=== PATIENT | female | born 1990 | race Two or more races ===

== ENCOUNTER 2024-08-25 11:02 | Emergency (ER) | payer BC, MEDICAID, SELFPAY ==
[2024-08-25 11:19] VITALS: BP 131/82; PULSE 121; RESP 18; TEMP 37.1; O2SAT 98; BMI 43.7
--- NOTE | 2024-08-25 11:25 | EKG_ITS ---
[facility] Test Date: 2024-08-25 Pat Name: MARTIN FOSTER Department: Room: - Gender: Female Program Counselor: : 1990 Requested By: Raúl Crespo (MICHELE) Order Number: [id number] Reading MD: Raúl Crespo (MICHELE) Measurements Intervals [place] Rate: 111 P: 44 HI: 104 QRS: 38 QRSD: 102 T: 53 QT: 335 QTc: 456 Interpretive Statements SINUS TACHYCARDIA WITH SHORT HI INTERVAL ABNORMAL RHYTHM ECG No previous ECG available for comparison /store/S0/[id number].pdf
--- NOTE | 2024-08-25 11:25 | XR_ITS ---
Examination: PA lateral chest 2 views TECHNIQUE: Upright PA lateral chest 2 views Exam date and time: August 25, 2024 11:41 AM INDICATIONS: Left-sided chest pain sweats vomiting diarrhea today FINDINGS: Normal heart size Lungs are clear. Intact osseous structures IMPRESSION: No active disease
--- NOTE | 2024-08-25 11:26 | PD.EDRME ---
Rapid Medical Screening Exam [facility] Arrival date/time: 08/25/24 11:02 34-year-old female presents to the emergency department complaints of nausea vomiting and diarrhea as well as left-sided chest pain Chief Complaint: Nausea/Vomiting/Diarrhea Vital signs: Vital Signs Temperature 98.7 F 08/25/24 11:19 Pulse Rate 121 H 08/25/24 11:19 Respiratory Rate 18 08/25/24 11:19 Blood Pressure 131/82 H 08/25/24 11:19 Pulse Oximetry (%) 98 08/25/24 11:19 Oxygen Delivery Method Room Air 08/25/24 11:19
[2024-08-25 12:04] LABS: Basophils % (Auto) 0 % (0-2.5); Eosinophils % (Auto) 0 % (0-10); Hematocrit 40.4 % (36.0-46.0); Hemoglobin 13.3 g/dL (12.0-16.0); Immature Granulocytes % (Auto) 0 % (0-0); Immature Granulocytes Auto 0.04 Thou/mm3 (0.00-0.00); Lymphocytes # (Auto) 2.4 Thou/mm3 (1.0-4.8); Lymphocytes % (Auto) 19 % (10-50); Mean Corpuscular HGB Conc 32.9 g/dl (31.0-37.0); Mean Corpuscular Hemoglobin 26.1 pg (25.0-35.0); Mean Corpuscular Volume 79 fL (80-100); Monocytes # (Auto) 0.6 Thou/mm3 (0.0-0.8); Monocytes % (Auto) 5 % (0-12); Neutrophils # (Auto) 9.4 Thou/mm3 (1.8-7.7); Neutrophils % (Auto) 75 % (37-80); Nucleated Red Blood Cell % 0 /100 WBC (0); Platelet Count 347 Thou/mm3 (140-440); RDW Standard Deviation 43.8 fL (36.4-46.3); White Blood Count 12.5 Thou/mm3 (3.6-11.0)
[2024-08-25 12:16] LABS: Collection Type, Urine Clean Catch
--- NOTE | 2024-08-25 12:32 | PD.EDNV ---
Nausea/Vomit./Diarrhea-RME/HPI General Chief complaint: Nausea/Vomiting/Diarrhea Stated complaint: SWEATS, VOMITING, DIARRHEA, SHARP CP Time Seen by Provider: 08/25/24 12:32 Arrival date/time: 08/25/24 11:02 34 year old female present to emergency room with c/o of nausea,vomiting, diarrhea and chest pain for a few days. LOCATION: Chest/abdominal SEVERITY: Symptoms are described as being severe with limitations on activities of daily living CONTEXT: The patient is unable to identify any inciting events. DURATION/TIMING: The symptoms started approximately 2 days ASSOCIATED SYMPTOMS: The patient is unable to identify any other associated symptoms. MODIFYING FACTORS: The patient is unable to identify any alleviating or aggravating symptoms. PERTINENT ROS: no fevers, no cough, no pleuritic pain, no ripping or tearing sensations, denies any lower extremity edema and no unilateral swelling, no shortness of breath no dizziness/headache no rash no loc/syncope episode no abd/back pain no dsyuria,urgency,frequency REVIEW OF SYSTEMS: See History of Present Illness - with the exception of those mentioned in the history of present illness, all other systems reviewed and reported as negative GENERAL: In general the patient is awake, interactive, in an emergency department gurney. HEAD/EYES/EARS/NOSE/THROAT: normo-cephalic, atraumatic, mucus membranes are moist, anicteric, palpebral conjunctiva is pink, trachea is midline. CARDIOVASCULAR: regular rate and regular rhythm, no murmurs, heart sounds are not distant, strong pulses in all four extremities that are equal and symmetric bilateral upper and lower extremities, normal capillary refill. CHEST/PULMONARY: normal chest rise and fall, good air movement, clear to auscultation bilaterally, normal inspiratory to expiratory ratios without evidence of respiratory distress. NECK: No midline/Paraspinal tenderness, no step off ROM/Strenght intact No Kernig and bruzinski sign. No trauma ABDOMEN: soft, not tender, no masses appreciated BACK: normal range of motion without pain. NEUROLOGICAL: cranio-facial features are symmetric, moves all four extremities equally without obvious limitations or weakness. EXTREMITY: no tenderness to palpation over the long bones or large joints of the bilateral upper and lower extremities, no joint swelling, no joint erythema, no signs of trauma, no unilateral leg swelling and no peripheral edema. SKIN: warm, dry, well-perfused, no jaundice, no rash, no telangiectasias or petechia. PSYCH: calm, cooperative, no evidence of psychosis or agitation RME / HPI RME / HPI Narrative: 08/25/24 11:02 34-year-old female presents to the emergency department complaints of nausea vomiting and diarrhea as well as left-sided chest pain Related Data Home Medications ?Medication ?Instructions ?Recorded ?Confirmed paroxetine HCl 10 mg tablet (Paxil) 10 mg PO QDAY 06/03/18 06/03/18 Previous Rx's ?Medication ?Instructions ?Recorded docusate sodium 100 mg capsule 100 mg PO BID #60 caps 06/07/18 (Colace) hydrocodone 5 mg-acetaminophen 325 1 tab PO [id number] PRN pain #20 tabs 06/07/18 mg tablet (Langeloth) ibuprofen 800 mg tablet 800 mg PO TID PRN pain #30 tabs 10/19/21 ondansetron 4 mg disintegrating 4 mg PO Q8H PRN nausea and 08/25/24 tablet vomiting #20 tabs oseltamivir 75 mg capsule (Tamiflu) 75 mg PO BID 5 days #10 caps 08/25/24 Allergies Allergy/AdvReac Type Severity Reaction Status Date / Time amoxicillin Allergy Intermediate Hives Verified 08/25/24 11:04 Penicillins Allergy Unknown Verified 08/25/24 11:04 Course Course Course Narrative: Patient presenting with influenza like symptoms.? Obtained influenza A/B screen, which revealed positive influenza.? The following were considered in the patient's differential diagnosis but was not deemed to be consistent with patient's history of present illness and/or physical examination; meningitis, pharyngitis, otitis media, pneumonia, urinary tract infection, peritonsillar abscess, retropharyngeal abscess.? As patient does not present with any signs/symptoms of pneumonia or other complications, basic labs, cxr, wnl, at this time. Educated patient on diagnosis and natural course of influenza.? Supportive care and preventive measures were discussed.? Continue fluid hydration. Follow up with primary physician in 3-5 days if symptoms continue or new problems arise. Return if having persistent high fever, altered mental status, shortness of breath, uncontrolled vomiting, or other concerns.? ? Impression:?? Influenza Plan:? Prescribed influenza zofran? Advised patient on support therapies, including rest, advancement of fluids as tolerated, thorough handwashing w/ soap and H2O, taking OTC ibuprofen or acetaminophen as directed, OTC expectorant/antitussive/decongestants as directed. Advised patient to refrain from visiting work, school, or daycares or visiting women, elderly, or those w/ chronic illnesses. Advised patient to return with new or worsening symptoms. Quality Measures none Orders Category Date Time Status Bedside Influenza A&B Antigen Test NOW Care 08/25/24 11:26 Completed EKG (ED ONLY) *Do not use* NOW Care 08/25/24 11:25 Completed EKG (ED Only) Stat Exams 08/25/24 11:25 Draft XR chest 2V Stat Exams 08/25/24 11:25 Completed CBC Stat Lab 08/25/24 11:48 Completed Comprehensive Metabolic Panel Stat Lab 08/25/24 11:48 Completed HCG Qualitative,Urine Stat Lab 08/25/24 12:04 Completed Troponin I Stat Lab 08/25/24 11:48 Completed UA, C/S IF [Urinalysis, C/S if Indicated] Stat Lab 08/25/24 12:04 Completed Urine Culture Stat Lab 08/25/24 12:04 Received Oseltamivir [Tamiflu] Med 08/25/24 13:35 Once 75 mg PO X1 ONE Reevaluation(s) Reevaluation #2: pt is feeling better and comfortable to go home. Vital Signs Vital signs: Vital Signs Temperature 98.7 F 08/25/24 11:19 Pulse Rate 121 H 08/25/24 11:19 Respiratory Rate 18 08/25/24 11:19 Blood Pressure 131/82 H 08/25/24 11:19 Pulse Oximetry (%) 98 08/25/24 11:19 Oxygen Delivery Method Room Air 08/25/24 11:19 Nausea/Vomiting/Diarrhea Patient data External records reviewed:: [facility] previous records Clinical information provided by:: patient Social determinants that could affect healthcare access:: none Patient has the following chronic illnesses:: n/a How is presenting disease/condition affected by chronic disease/condition?: no chronic disease Evaluation data The following diagnostics were reviewed and interpreted by me:: lab results, radiology exam(s) and EKG tracing(s) Lab and/or radiology exams considered but not ordered:: n/a Interpretation Summary: + Flu a /b Medications / Prescriptions Medications / Prescriptions considered but not ordered:: n/a Medication administrations:: Medication Administration History Oseltamivir Phosphate (Oseltamivir 75 Mg Capsule) 75 mg PO X1 ONE Stop: 08/25/24 13:36 n/a Consultations Consultation(s) initiated? (list below): No Diagnosis Nausea Differential Diagnosis: traveler's diarrhea, gastroenteritis, dehydration and other (UTI, dka, influenza a/b ) Most likely diagnosis given after review of the tests above:: influenza Admission Indicated Admission indicated?: not indicated Admission Request Was there a request for admission?: No Disposition Plan Disposition Plan: Discharge Discharge Attestation Discharge Attestation: The patient and all family members were given an opportunity to ask questions and understood the discharge instructions. Discharge instructions specifically effects, indications for sooner follow up or return to the emergency department, and the expected course of current diagnosis. Patient condition: Stable Discharge Plan Plan Patient Disposition: HOME (Self Care) Health Concerns: Follow with PMD as directed Take tylenol or motrin as need Return to ED if sx worsen Prescriptions/Referrals Prescriptions/Med Rec: New oseltamivir [Tamiflu] 75 mg capsule 75 mg PO BID 5 Days Qty: 10 0RF ondansetron 4 mg tablet,disintegrating 4 mg PO Q8H PRN (Reason: nausea and vomiting) Qty: 20 0RF No Action paroxetine HCl [Paxil] 10 mg Tablet 10 mg PO QDAY hydrocodone-acetaminophen [Langeloth] 5-325 mg tablet 1 tab PO [id number] MDD 4 PRN (Reason: pain) Qty: 20 0RF docusate sodium [Colace] 100 mg capsule 100 mg PO BID Qty: 60 0RF ibuprofen 800 mg tablet 800 mg PO TID PRN (Reason: pain) Qty: 30 0RF Referrals: No Primary/Family,Physician [Primary Care Provider] - In 1 week Problem List Clinical Impression: Influenza Patient/Caregiver Discharge Instructions Education Materials: ED Influenza (Adult) Print Language: Mongolian Stand Alone Forms: [facility] Award Info., Patient Portal Info Letter
[2024-08-25 12:36] LABS: HCG Qualitative,Urine Negative
[2024-08-25 12:37] LABS: Alanine Aminotransferase 26 U/L (10-49); Albumin, Serum 4.2 gm/dL (3.5-5.0); Albumin/Globulin Ratio 1.2 (1.2-2.2); Alkaline Phosphatase 70 U/L (46-116); Anion Gap 8 (7-16); Aspartate Amino Transferase 25 U/L (0-34); BUN/Creatinine Ratio 9 Ratio (12-20); Bilirubin,Total 0.6 mg/dL (0.3-1.2); Blood Urea Nitrogen 9 mg/dL (9-23); Calcium 9.4 mg/dL (8.3-10.6); Calcium (Corrected) 9.4 mg/dL (8.5-10.1); Chloride 105 mMol/L (98-107); Estimated Creatinine Clearance 93.6 mL/min (>60); Globulin 3.5 gm/dL (2.3-3.5); Glucose 116 mg/dL (74-106); Osmolality,Calculated 275 (275-295); Potassium 3.6 mMol/L (3.4-5.1); Sodium 138 mMol/L (136-145); Total Protein 7.7 gm/dL (5.7-8.2); Troponin I < 0.002 ng/mL (0.0-0.045); eGFR > 60 See Note
[2024-08-25 12:39] LABS: Bacteria,Urine Rare; Bilirubin,Urine Negative (Negative); Blood,Urine 1+ (Negative); Color,Urine Yellow (Lt Yel-Yel); Glucose, Urine Negative (Negative); Ketones,Urine Negative (Negative); Leukocyte Esterase,Urine Positive (Negative); Nitrite,Urine Negative (Negative); Protein,Urine Trace (Neg - Trace); RBC,Urine 5 /hpf (0-3); Squamous Epithelial Cell,Urine 8 /hpf (0-5); Urobilinogen,Urine Negative mg/dL (0.0-1.0); WBC,Urine 19 /hpf (0-5)
[2024-08-25 12:40] LABS: Clarity,Urine Hazy (Clear/Hazy); Culture Indicated,Urine Yes
[2024-08-25] MEDS: OSELTAMIVIR 75 MG CAPSULE PO (13:47)
== END 2024-08-25 13:49 | disposition home or self-care (01) ==
PROVIDERS: Nurse Practitioner Primary Care; Emergency Provider Emergency Medicine
DX: J10.1 Influenza due to other identified influenza virus with other respiratory manifestations (principal)
CPT/HCPCS: 36415; 71046; 80053; 81001; 81025; 84484; 85025; 87077; 87086; 87400; 93005; 99283; A9270